=== PATIENT | male | born 1960 | race Caucasian/White ===

== ENCOUNTER 2021-11-12 10:49 | Inpatient (IN) | payer MEDICARE, OTHER ==
[~2021-11-12] VITALS: Ht 160 cm; Wt 62.1 kg
[~2021-11-12 10:49] MED LIST: KEFLEX CAP 500500 MG PO
[2021-11-12 12:16] LABS: HEMOGLOBIN 14.3 gm/dl (14.0-17.5); RED BLOOD COUNT 4.26 M/UL (4.20-5.50)
[2021-11-12] MEDS ORDERED: ISOSORBIDE MONO30 MG PO (15:55)
[2021-11-12] MEDS ORDERED: CARVEDILOL6.25 MG PO (15:55)
[2021-11-12] MEDS ORDERED: ARTHRITIS PAIN150 GM TOP (15:56)
[2021-11-12] MEDS ORDERED: NITROSTAT0.4 MG SL (15:56)
[2021-11-12] MEDS ORDERED: LISINOPRIL5 MG PO (15:57)
[2021-11-12] MEDS ORDERED: ATORVASTATIN CA40 MG PO (15:57)
[2021-11-12] MEDS ORDERED: PLAVIX 75 MG TA75 MG PO (15:57)
[2021-11-12] MEDS ORDERED: ASPIRIN EC81 MG PO (15:58)
[2021-11-12] MEDS ORDERED: VITAMIN C500 M4 PO (15:58)
[2021-11-12] MEDS ORDERED: DAILY VALUE1 EACH PO (15:58)
[2021-11-12] MEDS ORDERED: VITAMIN B-121000 MCG PO (15:58)
[2021-11-13 03:30] LABS: WHITE BLOOD COUNT 11.4 K/UL (4.5-11.0)
[2021-11-13 03:35] LABS: HEMOGLOBIN 11.5 gm/dl (14.0-17.5); RED BLOOD COUNT 3.55 M/UL (4.20-5.50)
[2021-11-13 03:59] LABS: BUN/CREATININE RATIO 20 (0-10)
[2021-11-14 02:59] LABS: HEMOGLOBIN 12.3 gm/dl (14.0-17.5); RED BLOOD COUNT 3.76 M/UL (4.20-5.50)
[2021-11-14 03:11] LABS: BUN/CREATININE RATIO 18 (0-10)
[2021-11-14] MEDS ORDERED: NICOTINE PATCH1 EAC2 TD (15:43)
[2021-11-14] MEDS ORDERED: HUMIBID LA TAB600 MG PO (15:43)
== END 2021-11-14 17:41 | disposition home or self-care (01) | DRG 177 ==
LOC: ER1 10:49 → PROG CARE 14:51 → CDU 14:51 → PROG CARE 16:20
PROVIDERS: Physician Assistant; ADMIT Internal Medicine
PROC: 8E0ZXY6 Isolation (ICD-10-PCS; principal; 2021-11-12)
PROC: 3E0333Z Introduction of Anti-inflammatory into Peripheral Vein, Percutaneous Approach (ICD-10-PCS; 2021-11-13)
PROC: B24BZZZ Ultrasonography of Heart with Aorta (ICD-10-PCS; 2021-11-13)
DX: U07.1 COVID-19 (principal); J96.01 Acute respiratory failure with hypoxia; J12.82 Pneumonia due to coronavirus disease 2019; N17.9 Acute kidney failure, unspecified; E87.2 Acidosis; D53.9 Nutritional anemia, unspecified; J40 Bronchitis, not specified as acute or chronic; I10 Essential (primary) hypertension; E78.5 Hyperlipidemia, unspecified; I95.1 Orthostatic hypotension; I34.0 Nonrheumatic mitral (valve) insufficiency; I25.10 Atherosclerotic heart disease of native coronary artery without angina pectoris; F17.210 Nicotine dependence, cigarettes, uncomplicated; E86.0 Dehydration; Z79.82 Long term (current) use of aspirin; Z95.820 Peripheral vascular angioplasty status with implants and grafts; Z82.49 Family history of ischemic heart disease and other diseases of the circulatory system
CPT/HCPCS: ECHO; 0240U; 36415; 71045; 80053; 81001; 82550; 82553; 83605; 83874; 84484; 85025; 85027; 86140; 87040; 87086; 93306; 94640; 94664; 94760; 96374; 99285; J0696; J1100; J1200; J1644